=== PATIENT | female | born 1940 | race Caucasian/White ===

== ENCOUNTER → 2018-11-01 13:09 | Outpatient (POV) | payer MEDICARE, BC, SELFPAY | PROVIDERS: Visit Provider Dermatology | DX: Z00.00 Encounter for general adult medical examination without abnormal findings (principal) ==

== ENCOUNTER 2020-04-06 08:50 | Emergency (ER) | payer MEDICARE, BC, SELFPAY ==
[2020-04-06 08:51] VITALS: BP 188/96; PULSE 94; RESP 18; TEMP 36.5; O2SAT 97; BMI 23.5
--- NOTE | 2020-04-06 09:27 | PC.NURSE ---
Pt states she is unable to urinate at this time.
--- NOTE | 2020-04-06 09:28 | CT_ITS ---
PROCEDURE: CT HEAD/BRAIN WO CON CLINICAL INDICATION: hearing music and sounds x1 week, not sleeping COMPARISON: No exams were available for comparison TECHNIQUE: Axial images obtained. All CT scans at the facility use one or more dose reduction, viz: automated exposure control, ma/kV adjustment per patient size (including targeted exams where dose is matched to indication, i.e. head), or iterative reconstruction technique. FINDINGS: No midline shift, mass effect, intracranial hemorrhage, hydrocephalus, or extra-axial fluid collection is evident. The sylvian fissures and cortical sulci are prominent. There are moderate periventricular hypodensities consistent with chronic ischemic white matter changes. The calvarium has an unremarkable appearance. No mastoid effusion. No sinus air-fluid level. IMPRESSION: Findings of age-appropriate cortical atrophy and chronic ischemic white matter changes, no acute intracranial pathology noted Dictated by: Dr. Azam Verdugo MD 04/06/2020 09:[address] Azam Verdugo MD in [place] 04/06/2020 09:57
--- NOTE | 2020-04-06 09:36 | PC.NURSE ---
pt to radiology
--- NOTE | 2020-04-06 09:47 | PC.NURSE ---
pt return from CT
--- NOTE | 2020-04-06 10:24 | PC.NURSE ---
pt attempted to provide urine specimen again at this time, unsuccessful, giving pt water.
--- NOTE | 2020-04-06 10:25 | PC.NURSE ---
up to restroom again and is still unable to urinate.
[2020-04-06 11:26] VITALS: BP 163/84; PULSE 95; RESP 18; TEMP 37.4; O2SAT 93
--- NOTE | 2020-04-06 12:39 | HMH.EDGENADL ---
ED Disposition Clinical Impression: Auditory hallucinations Disposition: Home, Self-Care Condition on Discharge: Good Prescriptions: Quetiapine Fumarate [Seroquel 25mg tablet] 25 mg PO HS 30 Days #30 tab Transmission Status: Pending to [id number] Referrals: Dc Garcia MD [Primary Care Provider] - - Critical Care Critical Care Time: No Attestation: On 04/06/20, the high probability of a clinically significant, sudden or life threatening deterioration of the following system(s) required my full and direct attention, intervention and personal management. The time I documented below is in addition to time spent performing reported procedures but includes the following listed in this critical care notation. Medical Decision Making - Medical Records Medical records reviewed: Yes: I reviewed the patient's medical records. - Adam Inquiry Pt receiving controlled substance: No Vital Signs: 04/06/20 08:51 04/06/20 11:26 Temperature 97.7 F 99.3 F Temperature Source Oral Oral Pulse Rate [Right Radial] 94 H 95 H Respiratory Rate 18 18 Blood Pressure [Right Arm] 188/96 H 163/84 H Blood Pressure Mean [Right Arm] 126 110 Blood Pressure Source [Right Arm] Automatic Cuff Automatic Cuff Blood Pressure Position [Right Arm] Sitting Sitting 02 Sat by Pulse Oximetry 97 93 L Oxygen Delivery Method Room Air Room Air - Lab Data Lab results reviewed: Yes: I reviewed the patient's lab results. Orders (Tests/Meds): ED MEDICATIONS Discontinued Medications Generic Name Dose Route Start Last Admin Trade Name Freq PRN Reason Stop Dose Admin Tramadol HCl 50 mg 04/06/20 10:49 04/06/20 10:52 Ultram 50mg Tablet PO 04/06/20 10:50 50 mg ONCE ONE Administration ORDERS Category Date Time Status UA [Urinalysis and Microscopic] Stat Lab 04/06/20 09:28 Ordered - CT Data CT Scan: Head Time Received: 12:[address] Reviewed: Yes: I have viewed the radiologist's interpretation Preliminary Findings: Normal/NAD General Adult HPI - General Chief complaint: Weakness Stated complaint: hearing voices, not sleeping Time Seen by Provider: 04/06/20 12:00 Mode of Arrival: Wheelchair Source of Information: Patient Limitations: No Limitations Description of Symptoms (Recalled from ER Triage Doc. by RN): Pt reports difficulty sleeping for approx 1 week, states has also been hearing music and sounds that are not present. Pt son reports he had pt stop her tramadol 2 days ago because of the hearing sounds. Pt reports she did not sleep at all lastnight and has been shaking . Pt is alert, oriented x3. Reports has been on Tramadol for years for back pain. Denies urinary symptoms, denies pain. - History of Present Illness HPI narrative: 79-year-old female presents the ED with an acute onset of lightheadedness. Also of note she has been having some auditory hallucinations for the past 7 days. She did notice some of a couple months ago like music playing in the background music was playing and she said the been more pronounced lately. Patient also describes that she has had severe insomnia only sleeping a couple hours a night for the past 30 days. Patient did think it was her tramadol that was causing these issues so she did acutely stop it yesterday and has not had any in a day and a half. Otherwise patient denies any other symptoms. She denies any recent nausea vomiting diarrhea. She denies any dysuria she denies any arthralgias myalgias she denies any cough or shortness of breath. - Related Data Home Medications Medication Instructions Recorded Confirmed Aspirin [Aspirin 81mg chewable 81 mg PO DAILY 04/06/20 04/06/20 tab] Benazepril/Hydrochlorothiazide 1 each PO DAILY 04/06/20 04/06/20 [Benazepril-Hctz 20-25 mg Tab] Cetirizine HCl [Zyrtec] 10 mg PO DAILY 04/06/20 04/06/20 LORazepam [Ativan 1mg tablet] 1 mg PO BID 04/06/20 04/06/20 Levothyroxine Sodium 75 mcg PO DAILY 03/19
[2020-04-06 12:50] VITALS: BP 163/84; PULSE 95; RESP 18; TEMP 37.4; O2SAT 93
== END 2020-04-06 12:51 | disposition home or self-care (01) ==
PROVIDERS: Emergency Provider Family Medicine; PCP Family Medicine
DX: R44.0 Auditory hallucinations (principal); G47.00 Insomnia, unspecified; Z79.899 Other long term (current) drug therapy
CPT/HCPCS: 70450; 99282

== ENCOUNTER → 2020-04-07 13:38 | Outpatient (CLI) | payer MEDICARE, BC, SELFPAY ==
[2020-04-07 14:03] LABS: Microscopic, Urine URINE MICROSCOPIC (MICROSCOPIC)
[2020-04-07 14:06] LABS: Appearance,Urine CLEAR (Clear); Bilirubin,Urine Negative (Negative); Blood, Urine Negative (Negative); Color,Urine YELLOW (Yellow); Glucose,Urine (UA) Negative (Negative); Ketones,Urine Negative (Negative); Leukocyte Esterase,Urine TRACE (Negative); Nitrate,Urine POSITIVE (Negative); PH,Urine 6.5 (5.0-8.5); Protein,Urine Negative (Negative); Specific Gravity, Urine 1.015 (1.005-1.030); Urobilinogen,Urine 0.2 EU/dl (0.2)
[2020-04-07 14:17] LABS: Bacteria,Urine 2+ /lpf; WBC,Urine Occasional #/hpf (0-3)
== END ==
PROVIDERS: PCP Family Medicine; Visit Provider Family Medicine
DX: R44.0 Auditory hallucinations (principal); R82.90 Unspecified abnormal findings in urine
CPT/HCPCS: 81001; 87086

== ENCOUNTER → 2020-05-13 12:01 | Outpatient (CLI) | payer MEDICARE, BC, SELFPAY ==
[2020-05-13 12:52] LABS: Blood Urea Nitrogen 11 mg/dl (7-17); Estimated Glomerular Filt Rate 80 ml/min (>60); GFR (African American) 97 ML/MIN (>60)
--- NOTE | 2020-05-13 12:57 | MR_ITS ---
PROCEDURE: MR HEAD/BRAIN WO/W CON CLINICAL INDICATION: AUDITORY HALLUCINATIONS COMPARISON: CT HEAD/BRAIN WO CON from 04/06/2020 TECHNIQUE: Routine multiplanar multi echo sequences are performed without and with gadolinium enhancement. FINDINGS: Diffusion images show no evidence of acute infarction. The cerebellopontine angles, cerebellum, and brainstem have an unremarkable appearance. No midline shift or mass effect is evident. There are a few periventricular and subcortical T2 white matter hyperintensities which are nonspecific and may be related to ischemic gliotic changes from microvascular disease. No enhancing lesions are evident. No mastoid effusion or sinus air-fluid level. The pituitary, optic chiasm, corpus callosum, and craniocervical junction have an unremarkable appearance. IMPRESSION: 1. No acute intracranial findings. 2. Nonspecific periventricular and subcortical T2 white matter hyperintensity of which most common etiology would be ischemic gliotic change from microvascular disease. Dictated by: Carson Chowdhury MD 05/15/2020 08:26 Electronically signed by Carson Chowdhury MD in [place] 05/15/2020 08:26
== END ==
PROVIDERS: PCP Family Medicine; Visit Provider Family Medicine
DX: R44.0 Auditory hallucinations (principal)
CPT/HCPCS: 36415; 70553; 82565; 84520; A9576

== ENCOUNTER → 2020-06-25 10:54 | Outpatient (POV) | payer MEDICARE, BC, SELFPAY | PROVIDERS: Visit Provider Dermatology | DX: Z00.00 Encounter for general adult medical examination without abnormal findings (principal) ==

== ENCOUNTER → 2020-09-26 14:56 | Outpatient (CLI) | payer MEDICARE, BC, SELFPAY ==
--- NOTE | 2020-09-26 15:01 | XR_ITS ---
PROCEDURE: XR CERVICAL SPINE 5V CLINICAL INDICATION: CERVICAL SPINE PAIN, MUSCLE CRAMP COMPARISON: No exams were available for comparison FINDINGS: Views of the cervical spine including a swimmer's view show C1 through C7 to be intact. There is mild disc space narrowing at the C5-6 and C6-7 levels with minor anterior osteophytic spurring at both levels as well. There is mild neural foraminal narrowing on the right side at C5-6 and C6-7, left neural foramina appear grossly normal. There is moderately prominent arteriosclerotic calcification of carotid bulbs bilaterally. The prevertebral soft tissues are normal and the odontoid is normal. There is generalized osteopenia. There appear to be mild non recent compression fractures upper thoracic spine not completely visualized and adequately evaluated on these images. IMPRESSION: Mild degenerative disc disease C5-6 and C6-7 Dictated by: Dr. Azam Verdugo MD 09/26/2020 15:19 Dr. Azam Verdugo MD in [place] 09/26/2020 15:19
== END ==
PROVIDERS: PCP Nurse Practitioner; Visit Provider Nurse Practitioner
DX: M54.2 Cervicalgia (principal); R25.2 Cramp and spasm
CPT/HCPCS: 72050

== ENCOUNTER → 2021-04-15 14:39 | Outpatient (POV) | payer MEDICARE, BC, SELFPAY | PROVIDERS: Visit Provider Dermatology | DX: Z00.00 Encounter for general adult medical examination without abnormal findings (principal) ==

== ENCOUNTER → 2021-07-29 10:30 | Outpatient (CLI) | payer MEDICARE, BC, SELFPAY ==
--- NOTE | 2021-07-29 10:44 | XR_ITS ---
PROCEDURE: XR HIP RT 2-3V W/PELVIS CLINICAL INDICATION: LUMBAGO W/ SCIATICA, RT SIDE, RIGHT HIP PAIN COMPARISON: No exams were available for comparison FINDINGS: No acute fracture or dislocation. No lytic or blastic change. There is faint soft tissue calcification along the base of the greater trochanter laterally and could be related to old injury. Mild osteoarthritic changes of the hips. Degenerative changes noted in the lower lumbar spine. IMPRESSION: Mild osteoarthritis of the hips. Faint calcification along the inferior aspect of the greater trochanter on the right which could be related to old injury Dictated by: Carson Chowdhury MD 07/29/2021 16:28 Carson Chowdhury MD in [place] 07/29/2021 16:28
--- NOTE | 2021-07-29 10:44 | XR_ITS ---
PROCEDURE: XR LUMBAR SPINE MIN 4V CLINICAL INDICATION: LUMBAGO W/ SCIATICA RT SIDE, RT HIP PAIN COMPARISON: CR CXR CHEST(2 VIEWS-NOT PORTABLE) from 04/04/2016 FINDINGS: Mild lumbar scoliosis convex right. There is degenerative disc disease in the lower thoracic spine at T11-T12 and T12-L1. There is loss of height anteriorly of T12 of approximately 30 percent which appears old having a similar appearance on 04/04/2016. There is degenerative disc disease at L5-S1. There is diffuse vascular calcification. There is 8 mm anterolisthesis of L5 on S1. IMPRESSION: Degenerative changes, no acute finding Chronic wedge compression changes of T12 Dictated by: Carson Chowdhury MD 07/29/2021 16:41 Carson Chowdhury MD in [place] 07/29/2021 16:41
== END ==
PROVIDERS: PCP Family Medicine; Visit Provider Family Medicine
DX: M54.41 Lumbago with sciatica, right side (principal); M25.551 Pain in right hip
CPT/HCPCS: 72110; 73502

== ENCOUNTER 2021-08-25 18:26 | Inpatient (IN) | payer MEDICARE, BC, SELFPAY ==
[2021-08-25 18:26] VITALS: BP 143/76; PULSE 98; RESP 18; TEMP 36.6; O2SAT 98; BMI 25.4
--- NOTE | 2021-08-25 18:39 | XR_ITS ---
PROCEDURE INFORMATION: Exam: XR Chest Exam date and time: 08/25/2021 6:39 PM Age: 81 years old Clinical indication: Shortness of breath; Additional info: Weakness and SOB TECHNIQUE: Imaging protocol: XR of the chest. Views: 1 view. COMPARISON: CR CXR CHEST(2 VIEWS-NOT PORTABLE) 04/04/2016 11:35 AM FINDINGS: Lungs: Unremarkable. No consolidation. Pleural spaces: Unremarkable. No pleural effusion. No pneumothorax. Heart/Mediastinum: Unremarkable. No cardiomegaly. Bones/joints: Unremarkable. IMPRESSION: No acute findings.
--- NOTE | 2021-08-25 18:41 | HMH.EDGENADL ---
ED Disposition Clinical Impression: Hyponatremia Disposition: Admitted As Inpatient Condition on Discharge: Good Referrals: Dc Garcia MD [Primary Care Provider] - - Critical Care Critical Care Time: Yes Attestation: On 08/25/21, the high probability of a clinically significant, sudden or life threatening deterioration of the following system(s) required my full and direct attention, intervention and personal management. The time I documented below is in addition to time spent performing reported procedures but includes the following listed in this critical care notation. Vital system(s) involved:: Metabolic Failure My critical care processes included: Assessment & monitoring of V/S, Initial and Re-exams, Data Review/Interpretation Medical Decision Making - Medical Records Medical records reviewed: Yes: I reviewed the patient's medical records. - Adam Inquiry Pt receiving controlled substance: No Vital Signs: 08/25/21 18:26 Temperature 97.8 F Temperature Source Oral Pulse Rate [Left Radial] 98 H Respiratory Rate 18 Blood Pressure [Right Arm] 143/76 H Blood Pressure Mean [Right Arm] 98 Blood Pressure Source [Right Arm] Automatic Cuff Blood Pressure Position [Right Arm] Sitting 02 Sat by Pulse Oximetry 98 Oxygen Delivery Method Room Air - Lab Data Lab Results 08/25/21 19:34: WBC 19.8 H, RBC 4.40, Hgb 13.3, Hct 39.4, MCV 89.6, MCH 30.3, MCHC 33.8, RDW 12.5, Plt Count 453 H, MPV 7.7, Neut % (Auto) 91.8 H, Lymph % (Auto) 3.1 L, Titus % (Auto) 4.5, Eos % (Auto) 0.4, Baso % (Auto) 0.2, Neut # (Auto) 18.2 H, Lymph # (Auto) 0.6 L, Titus # (Auto) 0.9, Eos # (Auto) 0.1, Baso # (Auto) 0.1 08/25/21 19:34: Sodium 112 L*, Potassium 3.9, Chloride 77 L, Carbon Dioxide 27, Anion Gap 11.9, BUN 7, Creatinine 0.40 L, Estimated Creat Clear 48, Estimated GFR 152, Est GFR ( Amer) 184, Glucose 145 H, Calcium 8.7, Total Bilirubin 0.8, AST 29, ALT 15, Alkaline Phosphatase 86, Total Protein 6.6, Albumin 4.1, Globulin 2.5, Albumin/Globulin Ratio 1.6 Result diagrams: 08/25/21 19:34 08/25/21 19:34 Orders (Tests/Meds): ED MEDICATIONS Generic Name Dose Route Start Last Admin Trade Name Freq PRN Reason Stop Dose Admin Acetaminophen 650 mg 08/25/21 20:20 Acetaminophen 325mg Tab PO 09/24/21 20:19 Q4HP PRN Fever or Mild Pain Sodium Chloride 1,000 mls @ 100 mls/hr 08/25/21 20:30 Sod Chlor 0.9% 1000ml Bag IV 09/24/21 20:29 .Q10H MIKE Ondansetron HCl 4 mg 08/25/21 20:20 Ondansetron 4mg/2ml Vial IV 09/24/21 20:19 Q8HP PRN Nausea Discontinued Medications Generic Name Dose Route Start Last Admin Trade Name Freq PRN Reason Stop Dose Admin Sodium Chloride 100 mls @ 999 mls/hr 08/25/21 20:05 08/25/21 20:23 Sod Chloride 3% 500ml Bag (Hypertonic) IV 08/25/21 20:10 999 mls/hr .Q6M ONE Administration ORDERS Category Date Time Status Basic Metabolic Panel AMLAB Lab 08/26/21 06:00 Ordered Complete Blood Count Auto Diff AMLAB Lab 08/26/21 06:00 Ordered Complete Blood Count Auto Diff Stat Lab 08/25/21 19:34 Results Creatinine,Urine Random Stat Lab 08/25/21 20:04 Ordered Magnesium AMLAB Lab 08/26/21 06:00 Ordered Rapid PCR Covid and Flu A/B Stat Lab 08/25/21 19:56 Received Sodium Stat Lab 08/25/21 23:50 Ordered Urinalysis and Microscopic Stat Lab 08/25/21 18:38 Ordered Medical Decision Narrative: Patient is an 81-year-old female presenting to emergency department due to chief complaint of weakness. Differential diagnosis in this patient with electrolyte abnormality, dehydration, diarrheal illness, pneumonia, UTI, among others. Plan to order CBC, CMP, EKG, chest x-ray. CMP was concerning for severe hyponatremia with patient sodium being 112, corrected sodium was 113. She was given hypertonic boluses sodium 100ml, start her on 100 mL/h of normal saline with sodium check before midnight and BMP in the morning. Patient was discussed with Dr. Garcia who
--- NOTE | 2021-08-25 19:09 | PC.NURSE ---
LAbs coming to redraw blood
--- NOTE | 2021-08-25 19:18 | ECG_ITS ---
APPROVED REPORT Exam: Resting ECG HR:92 bpm ECG Measurements Heart Rate 92 AXES NH 152 P 69 QRSd 78 QRS -17 QT 368 T 58 QTc 455 Conclusion Sinus rhythm with occasional premature ventricular complexes Possible Left atrial enlargement Borderline ECG Electronically signed by : Dc Coffman MD 08/29/2021 13:57:02
[2021-08-25 19:45] LABS: Basophils # 0.1 K/mm3 (0-0.2); Basophils % 0.2 % (0.1-2.0); Eosinophils # 0.1 K/mm3 (0.0-0.4); Eosinophils % 0.4 % (0.1-12.0); Hematocrit 39.4 % (37.0-47.0); Hemoglobin 13.3 g/dL (12.2-16.2); Lymphocytes # 0.6 K/mm3 (0.7-4.5); Lymphocytes % 3.1 % (10-50); Mean Corpuscular HGB Conc 33.8 g/dL (31.8-35.4); Mean Corpuscular Hemoglobin 30.3 pg (27.0-31.2); Mean Corpuscular Volume 89.6 fl (81-99); Mean Platelet Volume 7.7 fl (7.4-10.4); Monocytes # 0.9 K/mm3 (0.1-1.0); Monocytes % 4.5 % (1.7-9.3); Neutrophils # 18.2 K/mm3 (1.8-7.8); Neutrophils % 91.8 % (37.0-80.0); Platelet Count 453 K/mm3 (142-424); Red Cell Distribution Width 12.5 % (11.5-17.5); White Blood Count 19.8 K/mm3 (4.8-10.8)
[2021-08-25 19:52] LABS: Alanine Aminotransferase 15 U/L (12-78); Albumin Level 4.1 g/dl (3.5-5.0); Albumin/Globulin Ratio 1.6 (1.1-1.8); Alkaline Phosphatase 86 U/L (38-126); Anion Gap 11.9 mEq/L (5-15); Aspartate Amino Transferase 29 U/L (14-36); Bilirubin,Total 0.8 mg/dl (0.2-1.3); Blood Urea Nitrogen 7 mg/dl (7-17); Calcium 8.7 mg/dl (8.4-10.2); Carbon Dioxide 27 mmol/L (22.0-30.0); Chloride 77 mmol/L (98-107); Creatinine Clearance Estimated 48 mL/min (50-200); Estimated Glomerular Filt Rate 152 ml/min (>60); GFR (African American) 184 ML/MIN (>60); Globulin 2.5 g/dL (1.3-3.2); Glucose 145 mg/dl (74-100); Potassium 3.9 mmoL/L (3.5-5.1); Total Protein,Serum 6.6 g/dl (6.3-8.2)
[2021-08-25 19:54] LABS: Sodium 112 mmol/L (136-145)
[2021-08-25 19:56] LABS: MANUAL DIFFERENTIAL MANUAL DIFFERENTIAL (MANUAL DIFF)
--- NOTE | 2021-08-25 20:04 | PC.NURSE ---
notified of critical sodium 112
[2021-08-25 20:09] LABS: Coronavirus 19, PCR Not Detected (NotDetected); Influenza A, PCR Not Detected (NotDetected); Influenza B, PCR Not Detected (NotDetected)
--- NOTE | 2021-08-25 20:12 | PC.NURSE ---
Dr. Ernst s/w Dr. Garcia
[2021-08-25 20:34] VITALS: BMI 25.4
[2021-08-25 21:17] LABS: Lymphocytes % 4 % (10-50); Monocytes % 1 % (2-9); Neutrophils % 95 % (42-76); Platelet Estimate Normal; RBC Morphology Normal; Total Cells Counted 100
[2021-08-25 21:48] VITALS: BP 154/75; PULSE 88; RESP 18; TEMP 36.6; O2SAT 94
--- NOTE | 2021-08-25 21:49 | PC.NURSE ---
patient up to floor via wheelchair @ this time
[2021-08-25 22:01] VITALS: BP 158/77; PULSE 94; RESP 20; TEMP 36.6; O2SAT 95
[2021-08-25 23:07] VITALS: O2SAT 95
[2021-08-26 04:00] VITALS: BP 125/66; PULSE 91; RESP 16; TEMP 36.6; O2SAT 90
--- NOTE | 2021-08-26 06:14 | PC.NURSE ---
Pt A+O x4. Pt c/o nausea when she arrived to floor. Zofran administered per MAR with favorable results. No other complaints voiced to staff. Able to ambulate to BR with 2x assist. Hat in place for urine specimen. Pt reports falling multiple times at home recently. Bed alarm in place for safety.
--- NOTE | 2021-08-26 07:17 | P.CONPHA_ITS ---
[facility] VTE Monitoring - Patient Demographics Admission date: 08/26/21 Report Date: 08/26/21 Time: 07:17 Allergies/Adverse Reactions: Patient Allergies No Known Allergies Allergy (Unverified 10/05/17 14:25) Height: 1.68 m Weight: 71.66 kg Patient Problems: Current Active Problems Hyponatremia (Acute) - VTE Risk Labs: VTE Related Lab Results Hgb 13.3 g/dL (12.2-16.2) 08/25/21 19:34 Hct 39.4 % (37.0-47.0) 08/25/21 19:34 Plt Count 453 K/mm3 (142-424) H 08/25/21 19:34 BUN 7 mg/dl (7-17) 08/25/21 19:34 Creatinine 0.40 mg/dl (0.52-1.04) L 08/25/21 19:34 Estimated Creat Clear 48 mL/min (50-200) 08/25/21 19:34 Was VTE Risk Assessment Performed: Yes VTE Score: 4 VTE Risk Level: Low Risk Clinical Trial Participant: No - Prophylaxis VTE Prophylaxis Ordered?: Yes Types of VTE Prophylaxis: TEDS Knee High
--- NOTE | 2021-08-26 07:19 | HMH.HP ---
*Admission Date: 08/26/21 *Chief complaint: Weakness *History of present illness: 81-year-old female presented to the emergency department with profound weakness that had been developing over the prior 3 to 4 days. Patient reports multiple falls at home. Yesterday her legs were so weak she could not get off of her toilet at home. Work-up in the emergency department revealed hyponatremia with sodium level of 112. Patient received a hypertonic saline bolus and was continued on normal saline overnight. Patient denies any confusion. She does have a history of auditory hallucinations but denies hallucinations recently. Patient had been started on fluoxetine in mid July for anxiety disorder. Sodium level performed in mid July was 132. This morning patient reports feeling a little better . [facility] History I have reviewed the patient's past medical history: Yes Medical History: Reports:: Hypertension Denies:: Diabetes Mellitus Type 1, Diabetes Mellitus Type 2 *Have you ever received a pneumonia vaccine?: Yes *Have you received a flu vaccine this season?: Yes Other Medical History: Reports: Hypothyroidism Laterality Cases: Bilateral: Tonsillectomy Other Surgeries: Yes: Hysterectomy-Total, Other (Tonsilectomy) Amputation: No Fractures: No - *Social History Last grade of school completed: GED Smoking Status: Former smoker Tobacco Type: cigarettes # Packs/Day (cigarettes): 1 Smoking End Date: 1992 Alcohol Intake: never *Occupational Status:: retired Housing: house Household Members: family, children *Travel in the last 8 weeks: None Family Hx:: Cancer Review of Systems - Constitutional Reports lack of energy - Eyes Denies blurry vision - ENT Reports abnormal hearing - *Cardiovascular Denies chest pain, Denies chest pain at rest, Denies chest pain with activity - *Respiratory Denies change in phlegm color, Denies chest congestion, Denies cough - *Gastrointestinal Denies belching, Denies bloating - *Genitourinary Denies painful urination - *Musculoskeletal Reports abnormal walking, Reports joint pain, Reports back pain - Integumentary/Breasts Denies hair loss - *Neurologic Reports weakness - Psychiatric Reports anxiety, Denies lack of enjoyment Meds Home Medications Medication Instructions Recorded Confirmed Type Aspirin [Aspirin 81mg chewable 81 mg PO DAILY 04/06/20 08/25/21 History tab] Benazepril/Hydrochlorothiazide 1 each PO DAILY 04/06/20 08/25/21 History [Benazepril-Hctz 20-25 mg Tab] Cetirizine HCl [Zyrtec] 10 mg PO DAILY 04/06/20 08/25/21 History LORazepam [Ativan 1mg tablet] 1 mg PO BID 04/06/20 08/25/21 History Levothyroxine Sodium 75 mcg PO DAILY 04/06/20 08/25/21 History [Levothyroxine 75mcg (0.075mg) Tab] Omeprazole [Omeprazole 40mg 40 mg PO DAILY 04/06/20 08/25/21 History Capsule] Pravastatin Sodium [Pravachol 40mg 40 mg PO HS 04/06/20 08/25/21 History Tablet] Tramadol HCl [Tramadol 50mg 50 mg PO Q6H PRN 04/06/20 08/25/21 History Tab] allopurinoL [Allopurinol 100mg 100 mg PO DAILY 04/06/20 08/25/21 History tablet] Quetiapine Fumarate [Seroquel 25mg 25 mg PO HS 08/25/21 08/25/21 History tablet] Allergies Allergy/AdvReac Type Severity Reaction Status Date / Time No Known Allergies Allergy Unverified 10/05/17 14:25 Exam Vital signs and Labs for Last 24 Hours: Temp Pulse Resp BP Pulse Ox 97.8 F 91 H 16 125/66 90 L 08/26/21 04:00 08/26/21 04:00 08/26/21 04:00 08/26/21 04:00 08/26/21 04:00 Laboratory Results - last 24 hr 08/25/21 19:34: WBC 19.8 H, RBC 4.40, Hgb 13.3, Hct 39.4, MCV 89.6, MCH 30.3, MCHC 33.8, RDW 12.5, Plt Count 453 H, MPV 7.7, Neut % (Auto) 91.8 H, Lymph % (Auto) 3.1 L, Garvin % (Auto) 4.5, Eos % (Auto) 0.4, Baso % (Auto) 0.2, Neut # (Auto) 18.2 H, Lymph # (Auto) 0.6 L, Garvin # (Auto) 0.9, Eos # (Auto) 0.1, Baso # (Auto) 0.1, Total Counted 100, Neutrophils % (Manual) 95 H, Lymphocytes
--- NOTE | 2021-08-26 07:32 | HMH.PHAINT ---
VERIFIED HOME MEDICATION LIST USING LIST FROM [facility] AND PHYSICIAN DISCUSSION
[2021-08-26 07:37] LABS: Blood Urea Nitrogen 8 mg/dl (7-17); Calcium 8.2 mg/dl (8.4-10.2); Carbon Dioxide 26 mmol/L (22.0-30.0); Chloride 81 mmol/L (98-107); Creatinine Clearance Estimated 48 mL/min (50-200); Estimated Glomerular Filt Rate 118 ml/min (>60); GFR (African American) 143 ML/MIN (>60); Glucose 122 mg/dl (74-100); Potassium 3.8 mmoL/L (3.5-5.1)
[2021-08-26 07:48] LABS: Anion Gap 10.8 mEq/L (5-15)
[2021-08-26 08:00] VITALS: BP 138/76; PULSE 98; RESP 18; TEMP 36.7; O2SAT 90
[2021-08-26 08:14] LABS: Sodium 114 mmol/L (136-145)
[2021-08-26 08:42] VITALS: RESP 18
--- NOTE | 2021-08-26 08:59 | PC.NURSE ---
Addendum entered by Betty Torres RN 08/26/21 09:07: NEW ORDER- d/c NS Original Note: 0813- spoke to kuldip in the lab regarding critical sodium of 114. verified name, and room number 0820- notified MD Garcia, NNO @ this time
--- NOTE | 2021-08-26 11:45 | HMH.PTEV ---
Physical Therapy Evaluation Rehab PT IP Evaluation Start: 08/26/21 07:00 Freq: ONCE Status: Active Protocol: Document 08/26/21 11:22 ADEOLA (Rec: 08/26/21 11:45 ADEOLA [id number]) Subjective/History History History This is the initial evaluation for Lis Castillo. Pt is an 81 y/o female admitted to [facility] for excessive weakness that has been developing over the past 4 days. Pt's labs showed hyponatremia. Pt is extremly hard of hearing. Pt was sitting in chair upon arrival. - note done by Kenya Mueller, SPT Subjective Subjective Pt stated she lived at home with son prior to current medical episode. Pt reports her son works most days so she is mostly home alone. Pt reports she uses a 4-point cane to get around but she still experiences falls. Pt reports feeling very weak in her legs and that she is afraid to stand. Rehab PT IP Eval Objective Appearance Patient Behavior Appropriate,Cooperative Patient Orientation Place,Name,Birthday,Year Difficulty following instructions mild Speech Pattern Clear,Appropriate,Coherent Ambulation Patient Able to Ambulate Yes Ambulation Observation IP General Gait Pattern Observation Narrow Based Gait Ambulation Distance (feet) 5 Ambulation Ability Minimal x 2 (25% assist) Balance Ability to Arise Able, uses arms to help Sitting Balance Leans or slides in chair Standing Balance Unsteady Dynamic Sitting Balance Ability Poor Dynamic Standing Balance Ability Poor Transfers Bed Transfer Ability Minimal x 2 (25% assist) Chair Transfer Ability Maximum x 2 (75% assist) Sit to Stand Chair Transfer Ability Maximum x 2 (75% assist) Rehab PT IP prob,goals,plan Problems Date of Evaluation: 08/26/21 PT IP Problems Bed Mobility,Transfers,Gait, Balance,Self care,Safety Rehab Potential Rehab Potential Fair Equipment Needs Assistive Devices Rolling / Wheeled Walker Plan PT Intervention Plan Bed Mobility,Transfers,Gait, Balance,Self care,Safety, Therapeutic Exercise PT Plan Frequency
--- NOTE | 2021-08-26 13:12 | SW/DCPLANNER ---
Addendum entered by [facility] 08/28/21 10:12: COVID swab will be collected/resulted prior to discharge. Addendum entered by [facility] 08/27/21 15:05: Laurel with [facility] has stated that she can accept this patient at time of discharge. Addendum entered by [facility] 08/27/21 11:49: Laurel with [facility] will do an onsite visit with this patient this afternoon. Laurel spoke with patients son to make him aware. Addendum entered by [facility] 08/27/21 09:24: I spoke with patients son (Ricardo) has stated that he is agreeable to placement for this patient. Ricardo has requested that patient information be faxed to [facility]. I will follow up with Laurel from [facility] this AM regarding referral. Addendum entered by [facility] 08/27/21 08:08: This patient is now agreeable to placement. I will call and speak with patients family this AM then fax patient information to preferred facilities. Dr Garcia has stated that patient could be ready for discharge tomorrow pending no setbacks. Original Note: I spoke with this patient regarding discharge plans. I explained to patient that PT has recommended placement at time of discharge. Patient has refused placement at this time stating that she has family to help her at home. Patient prefers to discharge home with home health services. I will continue to follow up with this patient until patient is medically stable for discharge.
[2021-08-26 16:00] VITALS: BP 136/76; PULSE 92; RESP 16; TEMP 36.5; O2SAT 89
[2021-08-26 20:00] VITALS: O2SAT 90
[2021-08-26 20:12] VITALS: BP 137/76; PULSE 89; RESP 17; TEMP 36.5; O2SAT 90
[2021-08-27] VITALS: BP 128/72; PULSE 88; RESP 16; TEMP 36.6; O2SAT 90
[2021-08-27 04:00] VITALS: BP 141/76; PULSE 89; RESP 17; TEMP 36.6; O2SAT 95
[2021-08-27 04:36] VITALS: BMI 26.3
--- NOTE | 2021-08-27 05:51 | PC.NURSE ---
No acute changes at this time. Pt slept well t/o night. Bed alarm in place for safety.
[2021-08-27 07:23] LABS: Anion Gap 9.7 mEq/L (5-15); Blood Urea Nitrogen 12 mg/dl (7-17); Carbon Dioxide 28 mmol/L (22.0-30.0); Chloride 79 mmol/L (98-107); Creatinine Clearance Estimated 50 mL/min (50-200); Estimated Glomerular Filt Rate 118 ml/min (>60); GFR (African American) 143 ML/MIN (>60); Glucose 116 mg/dl (74-100); Potassium 3.7 mmoL/L (3.5-5.1)
[2021-08-27 07:36] LABS: Sodium 113 mmol/L (136-145)
--- NOTE | 2021-08-27 07:36 | PC.NURSE ---
Notified provider MD Jose of serum sodium level of 113-- critical
[2021-08-27 08:00] VITALS: BP 156/81; PULSE 96; RESP 20; TEMP 36.9; O2SAT 92
--- NOTE | 2021-08-27 08:02 | PC.NURSE ---
Provider ordered 100mL bolus of 3% saline to run at 500ml/hr. Bolus initiated. Repeat sodium to be drawn at NOON as per provider order
[2021-08-27 08:41] LABS: Microscopic, Urine URINE MICROSCOPIC (MICROSCOPIC)
[2021-08-27 08:44] LABS: Appearance,Urine CLEAR (Clear); Bilirubin,Urine Negative (Negative); Blood, Urine TRACE-I (Negative); Color,Urine YELLOW (Yellow); Glucose,Urine (UA) Negative (Negative); Ketones,Urine 1+ (Negative); Leukocyte Esterase,Urine TRACE (Negative); Nitrate,Urine POSITIVE (Negative); PH,Urine 5.5 (5.0-8.5); Protein,Urine TRACE (Negative); Specific Gravity, Urine >= 1.030 (1.005-1.030); Urobilinogen,Urine 0.2 EU/dl (0.2)
[2021-08-27 09:04] LABS: Creatinine,Urine Random 125 mg/dL (Not Estab.)
--- NOTE | 2021-08-27 09:55 | P.PN_ITS ---
Internal Medicine - PN: Subj *Date: 08/27/21 *Time: 09:55 Interval history: Patient w/o complaints. Remains weak. PT recommends sNF. Patient is agreeable at the moment. Requiring at least 1 person and sometimes to person assist with ambulation Exam Vital signs and Labs for Last 24 Hours: Temp Pulse Resp BP Pulse Ox 98.4 F 96 H 20 156/81 H 92 L 08/27/21 08:00 08/27/21 08:00 08/27/21 08:00 08/27/21 08:00 08/27/21 08:00 Laboratory Results - last 24 hr 08/25/21 08:30: Urine Color Yellow, Urine Appearance Clear, Urine pH 5.5, Ur Specific [place] >= 1.030, Urine Protein Trace, Urine Glucose (UA) Negative, Urine Ketones 1+, Urine Blood Trace-i, Urine Nitrate Positive, Urine Bilirubin Negative, Urine Urobilinogen 0.2, Ur Leukocyte Esterase Trace, Urine RBC 3-5, Urine WBC 3-5, Ur Squamous Epith Cells 3-5, Urine Bacteria None 08/25/21 08:30: Urine Creatinine 125 08/27/21 06:48: Sodium 113 L*, Potassium 3.7, Chloride 79 L, Carbon Dioxide 28, Anion Gap 9.7, BUN 12 D, Creatinine 0.50 L, Estimated Creat Clear 50, Estimated GFR 118, Est GFR ( Amer) 143, Glucose 116 H, Calcium 8.0 L I & O for Last 24 hours: Intake & Output 08/24/21 08/25/21 08/26/21 08/27/21 11:59 11:59 11:59 11:59 Intake Total 0 / 0 720 / 720 Output Total 0 / 0 0 / 0 Balance 0 / 0 720 / 720 Weight 157 lb 15.732 oz 164 lb - Constitutional no acute distress - *Routine Respiratory Exam Present: CTA bilaterally - *Routine Cardiovascular Exam Present: RRR - *Routine Abdominal Exam Present: soft, normoactive bowel sounds. Absent: tenderness - *Routine Extremities Exam Absent: cyanosis, clubbing, edema Assessment and Plan (1) Hyponatremia Status: Acute Category: Medical Code(s): E87.1 - Hypo-osmolality and hyponatremia (2) SIADH (syndrome of inappropriate ADH production) Status: Acute Category: Medical Code(s): E22.2 - Syndrome of inappropriate secretion of antidiuretic hormone (3) Essential hypertension Status: Acute Category: Medical Code(s): I10 - Essential (primary) hypertension (4) Anxiety disorder Status: Acute Category: Medical Code(s): F41.9 - Anxiety disorder, unspecified (5) Degenerative arthritis of lumbar spine Status: Acute Category: Medical Code(s): M47.816 - Spondylosis without myelopathy or radiculopathy, lumbar region - Assessment and plan all Dx Assessment and Plan for all problems:: 1. Hypertonic saline bolus of 100ml, repeat bmp. If no improvment will given another bolus 2. CM consult for SNF
[2021-08-27 15:49] LABS: Chloride 80 mmol/L (98-107); Potassium 3.9 mmoL/L (3.5-5.1)
[2021-08-27 15:52] LABS: Anion Gap 10.9 mEq/L (5-15); Blood Urea Nitrogen 12 mg/dl (7-17); Calcium 8.1 mg/dl (8.4-10.2); Carbon Dioxide 28 mmol/L (22.0-30.0); Creatinine Clearance Estimated 50 mL/min (50-200); Estimated Glomerular Filt Rate 118 ml/min (>60); GFR (African American) 143 ML/MIN (>60); Glucose 119 mg/dl (74-100)
[2021-08-27 16:00] VITALS: BP 149/74; PULSE 92; RESP 24; TEMP 36.8; O2SAT 93
[2021-08-27 16:16] LABS: Sodium 115 mmol/L (136-145)
[2021-08-27 19:51] VITALS: BP 144/65; PULSE 90; RESP 20; TEMP 36.3; O2SAT 93
[2021-08-27 20:16] LABS: Anion Gap 9.7 mEq/L (5-15); Blood Urea Nitrogen 13 mg/dl (7-17); Calcium 7.9 mg/dl (8.4-10.2); Carbon Dioxide 27 mmol/L (22.0-30.0); Chloride 83 mmol/L (98-107); Creatinine Clearance Estimated 50 mL/min (50-200); Estimated Glomerular Filt Rate 152 ml/min (>60); GFR (African American) 184 ML/MIN (>60); Glucose 132 mg/dl (74-100); Potassium 3.7 mmoL/L (3.5-5.1); Sodium 116 mmol/L (136-145)
[2021-08-28 04:00] VITALS: BP 150/68; PULSE 91; RESP 20; TEMP 36.7; O2SAT 93
[2021-08-28 04:58] VITALS: BMI 27.1
--- NOTE | 2021-08-28 05:02 | PC.NURSE ---
NO ACUTE CHANGES. PT HAS C/O DISCOMFORT TO BACK AND ABDOMEN THIS SHIFT. HAS ALSO C/O NAUSEA. NO EMESIS NOTED. MEDICATED PER DEC. PT HAD A SHOWER THIS SHIFT. SHE STATES THAT SHE HAS HAD 2 LOOSE STOOLS. NOT OBSERVED BY STAFF. VSS. BP HAS IMPROVED. nO OTHER CONCERNS. WILL CONTINUE TO MONITOR.
--- NOTE | 2021-08-28 05:12 | PC.NURSE ---
NO ACUTE CHANGES. PT HAS RESTED WELL THIS SHIFT. HAS DENIED ANY PAIN. SHE WOKE UP THIS AM ASKING WHERE HER DOG WAS. PT WAS REDIRECTED. NO ADDITIONAL CONCERNS. SHE HAS BEEN INCONTINENT OF URINE X2 THIS SHIFT. VSS. MEDICATION ADMINISTERED PER MAR. WILL CONTINUE TO MONITOR.
[2021-08-28 07:10] LABS: Blood Urea Nitrogen 17 mg/dl (7-17); Calcium 7.9 mg/dl (8.4-10.2); Carbon Dioxide 28 mmol/L (22.0-30.0); Chloride 88 mmol/L (98-107); Creatinine Clearance Estimated 52 mL/min (50-200); Estimated Glomerular Filt Rate 69 ml/min (>60); GFR (African American) 83 ML/MIN (>60); Glucose 106 mg/dl (74-100); Sodium 122 mmol/L (136-145)
--- NOTE | 2021-08-28 07:27 | HMH.DCSUM ---
General - General Admission date:: 08/25/21 Discharge date: 08/28/21 HPI HPI: 81-year-old female presented to the emergency department with profound weakness that had been developing over the prior 3 to 4 days. Patient reports multiple falls at home. Yesterday her legs were so weak she could not get off of her toilet at home. Work-up in the emergency department revealed hyponatremia with sodium level of 112. Patient received a hypertonic saline bolus and was continued on normal saline overnight. Patient denies any confusion. She does have a history of auditory hallucinations but denies hallucinations recently. Patient had been started on fluoxetine in mid July for anxiety disorder. Sodium level performed in mid July was 132. This morning patient reports feeling a little better . Hospital Course Hospital Course: Patient was admitted for severe hyponatremia with associated mental status changes and falls. Mental status is somewhat difficult to assess the time due to the patient's severe hearing loss. Patient was admitted with a sodium level of 112 and after being given small fluid boluses of hypertonic saline sodium arnie as high as 116. Patient was then given hypertonic saline continuous infusion at 35 mL's per hour. Sodium arnie to 122. The cause of patient's hyponatremia is syndrome of inappropriate ADH secretion caused by fluoxetine the patient had been started on 1 month prior for anxiety. On August 28 patient's sodium had risen. She still remained weak and PT had evaluated the patient during hospitalization and recommended half-way facility for rehabilitation due to patient's falls at home. Patient was accepted by [facility] on August 28 with the discharge to that facility. Patient will need BMP each Wednesday she is at the facility Objective Vital signs: Temp Pulse Resp BP Pulse Ox 98.1 F 91 H 20 150/68 H 93 L 08/28/21 04:00 08/28/21 04:00 08/28/21 04:00 08/28/21 04:00 08/28/21 04:00 no acute distress - *Routine Respiratory Exam Present: CTA bilaterally - *Routine Cardiovascular Exam Present: RRR - *Routine Abdominal Exam Present: soft, normoactive bowel sounds. Absent: tenderness - *Routine Extremities Exam Absent: cyanosis, clubbing, edema Results Labs on day of discharge: Labs from last 24 hours 08/28/21 08/27/21 08/27/21 06:25 19:27 15:10 Sodium 122 L 116 L 115 L Potassium 4.0 3.7 3.9 Chloride 88 L 83 L 80 L Carbon Dioxide 28 27 28 Anion Gap 10.0 9.7 10.9 BUN 17 D 13 12 Creatinine 0.80 D 0.40 L 0.50 L Estimated Creat Clear 52 50 50 Estimated GFR 69 152 118 Est GFR ( Amer) 83 D 184 D 143 Glucose 106 H 132 H 119 H Calcium 7.9 L 7.9 L 8.1 L Urine Color Urine Appearance Urine pH Ur Specific [place] Urine Protein Urine Glucose (UA) Urine Ketones Urine Blood Urine Nitrate Urine Bilirubin Urine Urobilinogen Ur Leukocyte Esterase Urine RBC Urine WBC Ur Squamous Epith Cells Urine Bacteria Urine Creatinine 08/27/21 08/25/21 08/25/21 06:48 08:30 08:30 Sodium 113 L* Potassium 3.7 Chloride 79 L Carbon Dioxide 28 Anion Gap 9.7 BUN 12 D Creatinine 0.50 L Estimated Creat Clear 50 Estimated GFR 118 Est GFR ( Amer) 143 Glucose 116 H Calcium 8.0 L Urine Color Yellow Urine Appearance Clear Urine pH 5.5 Ur Specific [place] >= 1.030 Urine Protein Trace Urine Glucose (UA) Negative Urine Ketones 1+ Urine Blood Trace-i Urine Nitrate Positive Urine Bilirubin Negative Urine Urobilinogen 0.2 Ur Leukocyte Esterase Trace Urine RBC 3-5 Urine WBC 3-5 Ur Squamous Epith Cells 3-5 Urine Bacteria None Urine Creatinine 125 DS: Diagnosis - Discharge Diagnosis (1) Hyponatremia Status: Acute (2) SIADH (syndrome of inappropriate ADH production) Sta
[2021-08-28 08:00] VITALS: BP 146/73; PULSE 95; RESP 18; TEMP 36.5; O2SAT 90
--- NOTE | 2021-08-28 09:31 | PC.NURSE ---
pt home medication ativan was counted and verified with Yaa Ervin RN prior to pt d/c from unit.
[2021-08-28 11:12] LABS: Sodium, Urine 80 mmol/L (Not Estab.)
[2021-08-28 11:28] LABS: Coronavirus 19, PCR Not Detected (NotDetected); Influenza A, PCR Not Detected (NotDetected); Influenza B, PCR Not Detected (NotDetected)
[2021-08-29 08:21] LABS: Osmolality, Urine 623 mOsmol/kg (.)
== END 2021-08-28 09:50 | disposition home or self-care (01) | DRG 645 ==
LOC: ER 20:31 → 2ND 20:36
PROVIDERS: Admitting Provider Family Medicine; Emergency Provider Emergency Medicine; PCP Family Medicine; Visit Provider Family Medicine
DX: E22.2 Syndrome of inappropriate secretion of antidiuretic hormone (principal); I10 Essential (primary) hypertension; E03.9 Hypothyroidism, unspecified; Z87.891 Personal history of nicotine dependence; F41.9 Anxiety disorder, unspecified
CPT/HCPCS: 36415; 71045; 80048; 80053; 81001; 82570; 83935; 84300; 85007; 85025; 93005; 96365; 96366; 96375; 97110; 97162; 97530; 99284; C9803; J2405; U0003; U0005

== ENCOUNTER 2021-09-28 20:51 | Observation (INO) | payer MEDICARE, BC, SELFPAY ==
[2021-09-28 20:59] VITALS: BP 162/84; PULSE 122; RESP 32; TEMP 39.6; O2SAT 92; BMI 26.4
[2021-09-28 21:28] VITALS: BMI 26.6
[2021-09-28 21:31] VITALS: BP 119/58; PULSE 125; RESP 32; O2SAT 90
--- NOTE | 2021-09-28 21:31 | CT_ITS ---
PROCEDURE INFORMATION: Exam: CT Abdomen And Pelvis With Contrast Exam date and time: 09/28/2021 9:31 PM Age: 81 years old Clinical indication: Injury or trauma; Fall; Blunt; Generalized; Injury date: 09/28/2021; Additional info: Fall, low abd pain TECHNIQUE: Imaging protocol: Computed tomography of the abdomen and pelvis with contrast. Radiation optimization: All CT scans at this facility use at least one of these dose optimization techniques: automated exposure control; mA and/or kV adjustment per patient size (includes targeted exams where dose is matched to clinical indication); or iterative reconstruction. Contrast material: ISOVUE; Contrast volume: 70 ml; Contrast route: IV; COMPARISON: CR XR HIP BI W PEL1V 09/28/2021 9:56 PM FINDINGS: Liver: Normal. No mass. Gallbladder and bile ducts: Normal. No calcified stones. No ductal dilation. Pancreas: Normal. No ductal dilation. Spleen: Normal. No splenomegaly. Adrenal glands: Normal. No mass. Kidneys and ureters: There is stranding around the left kidney but no hydronephrosis. These findings are concerning for pyelonephritis. These findings could also reflect recent passage of a stone. Stomach and bowel: Diverticulosis in the sigmoid without diverticulitis. Constipation. No colitis. No small bowel obstruction. Appendix: Normal appendix Intraperitoneal space: Unremarkable. No free air. No significant fluid collection. Vasculature: Arthrosclerotic changes in the aorta. Lymph nodes: Unremarkable. No enlarged lymph nodes. Urinary bladder: Colunga catheter in the urinary bladder. Reproductive: Unremarkable as visualized. Bones/joints: Unremarkable. No acute fracture. Soft tissues: Unremarkable. IMPRESSION: Stranding around the left kidney could reflect pyelonephritis or inflammation from possible contusion although there is no hematoma or contrast extravasation . No additional acute intra-abdominal or intrapelvic process.
--- NOTE | 2021-09-28 21:31 | ECG_ITS ---
APPROVED REPORT Exam: Resting ECG HR:126 bpm ECG Measurements Heart Rate 126 AXES DC 126 P 68 QRSd 72 QRS -28 QT 354 T 61 QTc 512 Conclusion Sinus tachycardia with premature ventricular complexes or fusion complexes Possible Left atrial enlargement Borderline ECG Electronically signed by : Dc Coffman MD 09/29/2021 20:17:58
--- NOTE | 2021-09-28 21:31 | XR_ITS ---
PROCEDURE INFORMATION: Exam: XR Bilateral Hips Exam date and time: 09/28/2021 9:31 PM Age: 81 years old Clinical indication: Injury or trauma; Fall; Blunt trauma (contusions or hematomas); Bilateral; Pelvic region; Injury date: 09/28/2021; Patient HX: PT fell having low abdomen pain and pelvis pain; Additional info: Fall, bilat hip pain TECHNIQUE: Imaging protocol: XR bilateral hips. Views: 2 views of hips with pelvis when performed. COMPARISON: CR XR HIP RT 2-3V W/PELVIS 07/29/2021 10:59 AM FINDINGS: Bones/joints: Degenerative changes of the lumbosacral spine. No acute fracture. Soft tissues: [place] catheter is present. IMPRESSION: No acute findings.
--- NOTE | 2021-09-28 21:31 | XR_ITS ---
PROCEDURE INFORMATION: Exam: XR Chest Exam date and time: 09/28/2021 9:31 PM Age: 81 years old Clinical indication: Injury or trauma; Fall; Blunt trauma (contusions or hematomas); Injury date: 09/28/2021; Injury details: Fell; Patient HX: Trauma protocols TECHNIQUE: Imaging protocol: XR of the chest. Views: 4 or more views. COMPARISON: CR XR CHEST PORTABLE 08/25/2021 6:47 PM FINDINGS: Lungs: Unremarkable. No consolidation. Pleural spaces: Unremarkable. No pleural effusion. No pneumothorax. Heart/Mediastinum: Unremarkable. No cardiomegaly. Bones/joints: Mild scoliosis. IMPRESSION: No acute findings.
[2021-09-28 21:46] LABS: Microscopic, Urine URINE MICROSCOPIC (MICROSCOPIC)
[2021-09-28 21:49] LABS: Basophils # 0.1 K/mm3 (0-0.2); Basophils % 0.5 % (0.1-2.0); Eosinophils % 0.1 % (0.1-12.0); Hematocrit 39.1 % (37.0-47.0); Hemoglobin 12.6 g/dL (12.2-16.2); Lymphocytes # 0.9 K/mm3 (0.7-4.5); Lymphocytes % 9.4 % (10-50); Mean Corpuscular HGB Conc 32.3 g/dL (31.8-35.4); Mean Corpuscular Hemoglobin 29.1 pg (27.0-31.2); Mean Platelet Volume 8.6 fl (7.4-10.4); Monocytes # 0.7 K/mm3 (0.1-1.0); Monocytes % 7.1 % (1.7-9.3); Platelet Count 335 K/mm3 (142-424); Red Blood Count 4.34 M/mm3 (4.20-5.40); Red Cell Distribution Width 12.5 % (11.5-17.5); White Blood Count 9.6 K/mm3 (4.8-10.8)
--- NOTE | 2021-09-28 21:52 | HMH.EDFALL ---
ED Disposition Clinical Impression: SIRS (systemic inflammatory response syndrome) UTI (urinary tract infection) Qualifiers: Urinary tract infection type: site unspecified Hematuria presence: without hematuria Qualified Code(s): N39.0 - Urinary tract infection, site not specified Dyspnea Qualifiers: Dyspnea type: unspecified Qualified Code(s): R06.00 - Dyspnea, unspecified Disposition: Admitted As Inpatient Condition on Discharge: Fair Referrals: Dc Garcia MD [Primary Care Provider] - - Critical Care Critical Care Time: No Attestation: On 09/28/21, the high probability of a clinically significant, sudden or life threatening deterioration of the following system(s) required my full and direct attention, intervention and personal management. The time I documented below is in addition to time spent performing reported procedures but includes the following listed in this critical care notation. Medical Decision Making - Medical Records Medical records reviewed: Yes: I reviewed the patient's medical records. - Adam Inquiry Pt receiving controlled substance: No Vital Signs: 09/28/21 20:59 09/28/21 21:31 09/28/21 22:22 Temperature 103.2 F H Temperature Source Rectal Pulse Rate 125 H 117 H Pulse Rate [Right] 122 H Respiratory Rate 32 H 32 H 33 H Blood Pressure 119/58 L 149/65 H Blood Pressure [Right Arm] 162/84 H Blood Pressure Mean 85 93 Blood Pressure Mean [Right Arm] 110 02 Sat by Pulse Oximetry 92 L 90 L 92 L Oxygen Delivery Method Room Air Room Air Room Air 09/28/21 22:31 Temperature Temperature Source Pulse Rate 108 H Pulse Rate [Right] Respiratory Rate Blood Pressure 138/69 Blood Pressure [Right Arm] Blood Pressure Mean 92 Blood Pressure Mean [Right Arm] 02 Sat by Pulse Oximetry 87 L Oxygen Delivery Method Room Air - Lab Data Lab results reviewed: Yes: I reviewed the patient's lab results. Lab Results 09/28/21 21:18: WBC 9.6, RBC 4.34, Hgb 12.6, Hct 39.1, MCV 90.0, MCH 29.1, MCHC 32.3, RDW 12.5, Plt Count 335, MPV 8.6, Neut % (Auto) 83.0 H, Lymph % (Auto) 9.4 L, [place] % (Auto) 7.1, Eos % (Auto) 0.1, Baso % (Auto) 0.5, Neut # (Auto) 8.0 H, Lymph # (Auto) 0.9, [place] # (Auto) 0.7, Eos # (Auto) 0.0, Baso # (Auto) 0.1, ESR 36 H 09/28/21 21:18: Sodium 130 L, Potassium 3.5, Chloride 93 L, Carbon Dioxide 32 H, Anion Gap 8.5, BUN 32 H, Creatinine 0.90, Estimated Creat Clear 47, Estimated GFR 60, Est GFR ( Amer) 72, Glucose 156 H, Calcium 8.2 L, Magnesium 1.1 L, Total Bilirubin 0.4, AST 34, ALT 17, Alkaline Phosphatase 78, Troponin I 0.02, C-Reactive Protein 121.9 H, Total Protein 6.4, Albumin 3.6, Globulin 2.8, Albumin/Globulin Ratio 1.3, Procalcitonin 0.671, TSH 0.91, Thyroxine (T4) 7.9 09/28/21 21:18: Lactate 0.7 09/28/21 21:18: NT-Pro-B Natriuret Pep 1160 H 09/28/21 21:36: Urine Color Yellow, Urine Appearance Sl cloudy, Urine pH 5.5, Ur Specific [place] 1.025, Urine Protein 1+, Urine Glucose (UA) Negative, Urine Ketones Negative, Urine Blood Trace-i, Urine Nitrate Negative, Urine Bilirubin Negative, Urine Urobilinogen 0.2, Ur Leukocyte Esterase 1+ A, Urine RBC 3-5, Urine WBC 20-50 09/28/21 22:10: SARS-CoV-2 (PCR) Not detected, Influenza A Untype (PCR) Not detected, Influenza Type B (PCR) Not detected Result diagrams: 09/28/21 21:18 09/28/21 21:18 Orders (Tests/Meds): ED MEDICATIONS Generic Name Dose Route Start Last Admin Trade Name Freq PRN Reason Stop Dose Admin Sodium Chloride 1,000 mls @ 999 mls/hr 09/28/21 21:45 09/28/21 22:24 Sod Chlor 0.9% 1000ml Bag IV 09/28/21 22:45 999 mls/hr .Q1H1M MIKE Administration Ceftriaxone Sodium 1 gm/ 50 mls @ 100 mls/hr 09/28/21 23:00 09/28/21 23:38 Sodium Chloride IV 10/12/21 22:59 100 mls/hr Q24H MIKE Administration Discontinued Medications Generic Name Dose Route Start Last Admin Trade Name Freq PRN Reason Stop Dose Admin Acetaminophen 1,000 mg 09/28/21 21:31 09/28/21 22:24 Acetaminophe
[2021-09-28 21:54] LABS: Appearance,Urine SL CLOUDY (Clear); Bilirubin,Urine Negative (Negative); Blood, Urine TRACE-I (Negative); Color,Urine YELLOW (Yellow); Glucose,Urine (UA) Negative (Negative); Ketones,Urine Negative (Negative); Leukocyte Esterase,Urine 1+ (Negative); Nitrate,Urine Negative (Negative); PH,Urine 5.5 (5.0-8.5); Protein,Urine 1+ (Negative); Specific Gravity, Urine 1.025 (1.005-1.030); Urobilinogen,Urine 0.2 EU/dl (0.2)
[2021-09-28 21:55] LABS: Alanine Aminotransferase 17 U/L (12-78); Albumin Level 3.6 g/dl (3.5-5.0); Albumin/Globulin Ratio 1.3 (1.1-1.8); Alkaline Phosphatase 78 U/L (38-126); Anion Gap 8.5 mEq/L (5-15); Aspartate Amino Transferase 34 U/L (14-36); Bilirubin,Total 0.4 mg/dl (0.2-1.3); Blood Urea Nitrogen 32 mg/dl (7-17); Calcium 8.2 mg/dl (8.4-10.2); Carbon Dioxide 32 mmol/L (22.0-30.0); Chloride 93 mmol/L (98-107); Creatinine Clearance Estimated 47 mL/min (50-200); Estimated Glomerular Filt Rate 60 ml/min (>60); GFR (African American) 72 ML/MIN (>60); Globulin 2.8 g/dL (1.3-3.2); Glucose 156 mg/dl (74-100); Magnesium 1.1 mg/dl (1.6-2.3); Potassium 3.5 mmoL/L (3.5-5.1); Sodium 130 mmol/L (136-145); Total Protein,Serum 6.4 g/dl (6.3-8.2)
[2021-09-28 21:56] LABS: Lactic Acid 0.7 mmol/L (0.7-2.1)
[2021-09-28 22:00] LABS: C-Reactive Protein 121.9 mg/L (0-4)
[2021-09-28 22:00] LABS: WBC,Urine 20-50 #/hpf (0-3)
[2021-09-28 22:07] LABS: NT Pro Brain Natriuretic Pep. 1160 pg/mL (0-450)
[2021-09-28 22:10] LABS: Troponin I 0.02 ng/ml (0.00-0.034)
[2021-09-28 22:11] LABS: Erythrocyte Sedimentation Rate 36 mm/hr (0-30)
[2021-09-28 22:15] LABS: Procalcitonin 0.671 ng/mL (0.0-2.0); T4 (Thyroxine) 7.9 ug/dl (5.53-11.0)
[2021-09-28 22:22] VITALS: BP 149/65; PULSE 117; RESP 33; O2SAT 92
[2021-09-28 22:28] LABS: Thyroid Stimulating Hormone 0.91 uIU/mL (0.465-4.68)
[2021-09-28 22:31] VITALS: BP 138/69; PULSE 108; O2SAT 87
--- NOTE | 2021-09-28 22:54 | PC.NURSE ---
paged Dr. Prado (production machine tender for Dr. Garcia)
--- NOTE | 2021-09-28 22:56 | PC.NURSE ---
Dr. Ram s/w Dr. Prado
--- NOTE | 2021-09-28 23:02 | CT_ITS ---
PROCEDURE INFORMATION: Exam: CTA Chest With Contrast Exam date and time: 09/28/2021 11:02 PM Age: 81 years old Clinical indication: Injury or trauma; Blunt trauma (contusions or hematomas); Injury date: 09/28/2021; Injury details: Fall tonight now SOB tachypnea low 02; Additional info: Tachypnea, low o2, post fall TECHNIQUE: Imaging protocol: Computed tomographic angiography of the chest with contrast. 3D rendering (Not supervised by radiologist): MIP and/or 3D reconstructed images were created by the technologist. Radiation optimization: All CT scans at this facility use at least one of these dose optimization techniques: automated exposure control; mA and/or kV adjustment per patient size (includes targeted exams where dose is matched to clinical indication); or iterative reconstruction. Contrast material: ISOVUE 370; Contrast volume: 70 ml; Contrast route: INTRAVENOUS (IV); COMPARISON: CR XR CHEST AP 09/28/2021 9:54 PM FINDINGS: Pulmonary arteries: Normal. No pulmonary emboli. Aorta: Unremarkable. No aortic aneurysm. No aortic dissection. Lungs: There is scarring in the lung apices. Emphysema. Scattered atelectasis bilaterally. No pneumonia. Pleural spaces: Unremarkable. No pneumothorax. No pleural effusion. Heart: Unremarkable. No cardiomegaly. No pericardial effusion. Lymph nodes: Unremarkable. No enlarged lymph nodes. Diaphragm: Large hiatal hernia. Intraperitoneal space: Upper abdomen reveals partially imaged stranding around the left kidney. Bones/joints: Superior endplate fracture of T5. No acute fracture. Soft tissues: Unremarkable. IMPRESSION: 1. No pulmonary embolism. No acute cardiopulmonary process. 2. Upper abdomen reveals partially imaged stranding around the left kidney. Recommend abdomen and pelvis CT to further evaluate.
[2021-09-28 23:09] LABS: Coronavirus 19, PCR Not Detected (NotDetected); Influenza A, PCR Not Detected (NotDetected); Influenza B, PCR Not Detected (NotDetected)
--- NOTE | 2021-09-29 00:12 | PC.NURSE ---
Patient assigned to 215 with dx. UTI and SIRS
[2021-09-29 01:08] LABS: Troponin I 0.02 ng/ml (0.00-0.034)
--- NOTE | 2021-09-29 01:09 | PC.NURSE ---
Pt's son set up password as Moreno
[2021-09-29 01:11] VITALS: BP 124/75; PULSE 81; RESP 25; TEMP 37.2; O2SAT 96
[2021-09-29 01:15] VITALS: BP 113/57; PULSE 82; RESP 20; TEMP 36.4; O2SAT 96; BMI 26.6
--- NOTE | 2021-09-29 01:15 | PC.NURSE ---
patient up to floor via wheelchair.
[2021-09-29 04:00] VITALS: BP 104/58; PULSE 72; RESP 18; TEMP 36.4; O2SAT 94
[2021-09-29 04:06] LABS: Anion Gap 9.2 mEq/L (5-15); Basophils % 0.3 % (0.1-2.0); Blood Urea Nitrogen 33 mg/dl (7-17); Calcium 7.6 mg/dl (8.4-10.2); Carbon Dioxide 30 mmol/L (22.0-30.0); Chloride 95 mmol/L (98-107); Creatinine Clearance Estimated 48 mL/min (50-200); Eosinophils % 0.3 % (0.1-12.0); Estimated Glomerular Filt Rate 60 ml/min (>60); GFR (African American) 72 ML/MIN (>60); Lymphocytes # 1.2 K/mm3 (0.7-4.5); Lymphocytes % 17.1 % (10-50); Magnesium 1.1 mg/dl (1.6-2.3); Mean Corpuscular HGB Conc 31.8 g/dL (31.8-35.4); Mean Corpuscular Hemoglobin 29.2 pg (27.0-31.2); Mean Corpuscular Volume 91.7 fl (81-99); Mean Platelet Volume 8.5 fl (7.4-10.4); Monocytes # 0.6 K/mm3 (0.1-1.0); Monocytes % 8.4 % (1.7-9.3); Neutrophils # 5.1 K/mm3 (1.8-7.8); Neutrophils % 73.9 % (37.0-80.0); Platelet Count 266 K/mm3 (142-424); Potassium 3.2 mmoL/L (3.5-5.1); Red Blood Count 3.81 M/mm3 (4.20-5.40); Red Cell Distribution Width 12.6 % (11.5-17.5); Sodium 131 mmol/L (136-145); White Blood Count 6.9 K/mm3 (4.8-10.8)
[2021-09-29 04:12] LABS: Hemoglobin 11.1 g/dL (12.2-16.2)
[2021-09-29 04:13] LABS: Glucose 118 mg/dl (74-100)
[2021-09-29 04:18] LABS: Troponin I 0.02 ng/ml (0.00-0.034)
[2021-09-29 05:19] VITALS: BMI 26.6
--- NOTE | 2021-09-29 07:10 | CA_ITS ---
APPROVED REPORT EXAM: Comprehensive 2D, Doppler, and color-flow Echocardiogram Moth Exterminator: Latrice Alonso, RCS, RVS Ht: 5 ft 4 in Wt: 156lbs BSA: 1.76 BP: 104/58 mmHg Indications: Ex-smoker, HTN, HLD, Hypoxemia, ROCHA, Murmur 2D Dimensions IVSd 0.91 cm LVEF (Visual) 51.60 % PWd 0.88 cm LA Volume 48.00 mL LVDd 4.66 cm LA Volume Index 27.364113 mL/m2 (M/F) 16-34 LVDs 3.43 cm Aortic Root 2.86 cm Left Atrium 3.08 cm LVOT 1.82 cm (M/F) 1.5-2.5 M-Mode Dimensions RVDd 1.39 cm (0.9-2.6) LA Diam 3.57 cm (1.9-4.0) LVDd 4.60 cm (3.5-5.7) Ao Diam 3.21 cm (2.0-3.7) LVDs 3.00 cm (3.5-5.7) IVSd 0.89 cm (0.6-1.1) PWd 0.82 cm (0.6-1.1) EF (Teich) 64.00% EPSs 0.75 cm FS 34.80% EDV (Teich) 97.30 mL TAPSE 1.75 (<1.7) ESV (Teich) 35.00 mL LV Diastology E Decel Time 223.00 (160-240 msec) E/A Ratio 0.79 MED E' 7.20 (< 7 cm/sec) MED A' 10.90 cm/s E'/MED E' Ratio 12.76 (>14) LAT E' 6.80 (<10 cm/sec) LAT A' 13.90 cm/s E/LAT E' Ratio 13.51 (>14) Aortic Valve LVOT Max 101.00 (70-110 cm/s) LVOT VTI 26.03 cm AoV Peak Holger. 147.00 (50-130 cm/s) AI PHT 383.00 ms AO Peak GR. 8.60 mmHg AO Mean GR. 4.30 (<5 mmHg) AO VTI 33.69 (18-25 cm) ELANA (VTI) 2.01 (2.5-4.5 cm2) Mitral Valve MV A Velocity 116.00 (40-130 cm/s) E/A Ratio 0.79 MV Decel. Time 223.00 (160-240 ms) Tricuspid Valve TR P. Velocity 298.00 cm/s RAP Estimate 10.00 mmHg RVSP 45.50 mmHg Left Ventricle Left atrium is mildly enlarged, left ventricle is normal size, mild concentric left ventricular hypertrophy, visually estimated ejection fraction 55% with no regional wall motion abnormality, grade 1 diastolic dysfunction seen with tissue Doppler evidence of raise left atrial pressure. Right Ventricle Right atrium and right ventricle mildly enlarged with normal contractility. Aortic Valve Aortic valve is thickened and calcified without Doppler evidence of aortic stenosis, there is mild aortic insufficiency. Mitral Valve Mitral valve leaflets are minimally thickened, there is mild mitral regurgitation. Tricuspid Valve Tricuspid grossly normal, there is mild tricuspid regurgitation, tricuspid regurgitation jet velocity is inadequate for calculation of the right ventricular systolic pressure. Pulmonic Valve Pulmonic valve is poorly visualized. Great Vessels Aortic root is normal size. Inferior vena cava is normal size with normal inspiratory collapse. Pericardium No significant pericardial effusion noted. Conclusion 1. Mild biatrial enlargement, normal left ventricular size, mild concentric left ventricular hypertrophy, visually estimated ejection fraction 55% with no regional wall motion abnormality, grade 1 diastolic dysfunction seen with tissue Doppler evidence of raise left atrial pressure. 2. Mildly dilated ventricle with normal contractility. 3. Mild mitral aortic and tricuspid regurgitation. 4. No significant pericardial effusion noted. 5. Inferior vena cava is normal size with normal inspiratory collapse. Electronically signed by : Alon Shrestha MD 09/29/2021 19:41:35
--- NOTE | 2021-09-29 07:11 | HMH.HP ---
*Admission Date: 09/29/21 *Chief complaint: Multiple falls at home *History of present illness: 81-year-old female presented to the emergency department after multiple falls at home. Patient describes her falls as getting dizzy upon standing and then becoming weak and falling. Apparently this happened 4 times at home and finally family decided to bring her to the emergency department. Patient had just completed a rehabilitation stay at [facility] and had returned home. Upon arrival to the emergency department patient had an ER fever of 103.1. Further work-up was suggestive of urinary tract infection. Patient was also noted to be tachypneic and ultimately required application of supplemental oxygen via nasal cannula overnight due to hypoxia with O2 sat of 87%. Patient was admitted for IV antibiotics, oxygen support and observation. Patient denies chest pain, cough, shortness of breath at home, fevers, chills, dysuria, hematuria, urinary urgency, urinary frequency [facility] History I have reviewed the patient's past medical history: Yes Medical History: Reports:: Hyperlipidemia, Hypertension Denies:: Diabetes Mellitus Type 2 *Have you ever received a pneumonia vaccine?: Yes *Have you received a flu vaccine this season?: Yes Other Medical History: Reports: Hypothyroidism Laterality Cases: Bilateral: Tonsillectomy Other Surgeries: Yes: Hysterectomy-Total, Other (Tonsilectomy) Amputation: No Fractures: No - *Social History Smoking Status: Former smoker Tobacco Type: cigarettes # Packs/Day (cigarettes): 1 Alcohol Intake: never *Occupational Status:: disabled Housing: house Household Members: family, children *Travel in the last 8 weeks: None Family Hx:: Cancer Review of Systems - Constitutional Denies anorexia, Denies body ache(s), Denies chills, Denies lack of energy - Eyes Denies blurry vision - ENT Reports abnormal hearing - *Cardiovascular Denies chest pain, Denies chest pain at rest, Denies chest pain with activity, Denies shortness of breath with activity, Denies generalized swelling, Denies irregular heart rhythm - *Respiratory Denies change in phlegm color, Denies chest congestion, Denies cough - *Gastrointestinal Denies abdominal pain, Denies belching, Denies loose stools - *Genitourinary Denies urinary urgency - *Musculoskeletal Reports joint pain, Denies abnormal walking - Integumentary/Breasts Denies hair loss - *Neurologic Reports dizziness, Reports weakness, Denies confusion, Denies localized weakness, Denies headache(s), Denies seizure-like activity - Psychiatric Denies abnormal sleep pattern - Endocrine Denies cold intolerance, Denies excessive sweating Meds Home Medications Medication Instructions Recorded Confirmed Type Aspirin [Aspirin 81mg chewable 81 mg PO DAILY 04/06/20 09/29/21 History tab] Benazepril/Hydrochlorothiazide 1 tab PO DAILY 04/06/20 09/29/21 History [Benazepril-Hctz 20-25 mg Tab] Cetirizine HCl [Zyrtec] 10 mg PO DAILY 04/06/20 09/29/21 History Levothyroxine Sodium 75 mcg PO DAILY 04/06/20 09/29/21 History [Levothyroxine 75mcg (0.075mg) Tab] Omeprazole [Omeprazole 40mg 40 mg PO DAILY 04/06/20 09/29/21 History Capsule] Pravastatin Sodium [Pravachol 40mg 40 mg PO HS 04/06/20 09/29/21 History Tablet] allopurinoL [Allopurinol 100mg 100 mg PO DAILY 04/06/20 09/29/21 History tablet] Quetiapine Fumarate [Seroquel 25mg 25 mg PO HS 08/25/21 09/29/21 History tablet] Diclofenac Sodium [Diclofenac Sod 1 applicatio TP QIDP PRN 08/26/21 09/29/21 History 100gm Topical Gel] LORazepam [Lorazepam 0.5mg Tablet] 0.5 mg PO BIDP PRN #60 tab 08/28/21 09/29/21 Rx Tramadol HCl [Tramadol 50mg 50 mg PO DAILYP PRN #30 tab 08/28/21 09/29/21 Rx Tab] Allergies Allergy/AdvReac Type Severity Reaction Status Date / Time No Known Allergies Allergy Unverified 10/05/17 14:25 Exam Vital signs and Labs for Last 24 Ho
--- NOTE | 2021-09-29 07:22 | XR_ITS ---
PROCEDURE: XR CHEST PORTABLE CLINICAL HISTORY: hypoxia COMPARISON: CR CXR CHEST(2 VIEWS-NOT PORTABLE) from 04/04/2016 CR XR CHEST AP from 09/28/[address] ANGIO CHEST PE PROTOCOL from 09/28/[address] ABDOMEN PELVIS W CON from 09/28/2021 FINDINGS: The cardiomediastinal silhouette and pulmonary vascularity are within normal limits. No lobar consolidation or collapse. Minimal atelectatic change left lower lobe. Chronic coarsening of the bronchovascular markings consistent with COPD. No acute bony abnormalities. IMPRESSION: No acute findings. Dictated by: Carson Chowdhury MD 09/29/2021 09:16 Carson Chowdhury MD in [place] 09/29/2021 09:16
--- NOTE | 2021-09-29 07:27 | P.CONPHA_ITS ---
[facility] Pharmacy VTE Monitoring - Patient Demographics Admission date: 09/28/21 Report Date: 09/29/21 Time: 07:27 Allergies/Adverse Reactions: Patient Allergies No Known Allergies Allergy (Unverified 10/05/17 14:25) Height: 1.63 m Weight: 70.806 kg Patient Problems: Current Active Problems Essential hypertension (Acute) UTI (urinary tract infection) (Acute) SIRS (systemic inflammatory response syndrome) (Acute) Dyspnea (Acute) Hypoxia (Acute) - VTE Risk Labs: VTE Related Lab Results Hgb 11.1 g/dL (12.2-16.2) L D 09/29/21 03:50 Hct 35.0 % (37.0-47.0) L 09/29/21 03:50 Plt Count 266 K/mm3 (142-424) 09/29/21 03:50 BUN 33 mg/dl (7-17) H 09/29/21 03:50 Creatinine 0.90 mg/dl (0.52-1.04) 09/29/21 03:50 Estimated Creat Clear 48 mL/min (50-200) 09/29/21 03:50 - Prophylaxis VTE Prophylaxis Ordered?: Yes Types of VTE Prophylaxis: TEDS Knee High Location of Applied Device: Bilateral Lower Extremeties
[2021-09-29 08:00] VITALS: BP 140/65; PULSE 83; RESP 19; TEMP 36.6; O2SAT 100
--- NOTE | 2021-09-29 11:03 | SW/DCPLANNER ---
Addendum entered by Daniella Parnell 10/01/21 07:21: PATIENT DISCHARGED TO [facility], [facility] YESTERDAY AND WENT TO THE PERSONAL CARE SECTION.. DAUGHTER STATED SHE FEELS BETTER KNOWING SHE IS THERE VERSES BEING AT HOME... THEY ARE GOING TO EVAL HER THERE AND USE THEIR THERAPY DEPT TO SEE HER DURING HER SHORT TERM STAY THERE, PER FAMILY REQUEST.. Original Note: DR DUNCAN SPOKE WITH ME THIS MORNING REGARDING THIS PATIENT THAT JUST GOT OUT OF [facility], [facility] AND WENT HOME AND HAS HAD SEVERAL FALLS.. I MADE CONTACT WITH [facility], [facility] AND [facility] CALLED THE SON WHOM SHE LIVES WITH AND HE SAID IF PHYSICAL THERAPY SAYS SHE NEEDS TO COME BACK HE CAN AFFORD FOR HER TO GO SHORT TERM.. WAITING ON HER PT EVAL TO BE DONE AND I WILL SEND IT TO [facility], [facility] AND LET DR DUNCAN KNOW IF THEY WILL TAKE HER BACK...
--- NOTE | 2021-09-29 11:13 | HMH.PHAINT ---
Home medications verified with [facility] pharmacy and Dr. Garcia's office.
--- NOTE | 2021-09-29 11:33 | HMH.PTEV ---
Physical Therapy Evaluation Rehab PT IP Evaluation Start: 09/29/21 07:22 Freq: ONCE Status: Active Protocol: Document 09/29/21 11:27 PHORSUNNI (Rec: 09/29/21 11:32 PHORNE [id number]) Subjective/History History History 81 yowf adm to [facility] with UTI, She reports she lives with grandson with no steps to enter the home and has walker for ambulation. Subjective Subjective Pt states, I hurt from my neck down to my feet. I can't take this catheter home with me. Rehab PT IP Eval Objective Appearance Patient Behavior Appropriate,Confused Patient Orientation Person,Place,Month Difficulty following instructions none Speech Pattern Clear Ambulation Patient Able to Ambulate No Balance Ability to Arise Able, uses arms to help Sitting Balance Steady, safe Standing Balance Steady, wide stance Dynamic Sitting Balance Ability Good Dynamic Standing Balance Ability Fair Transfers Bed Transfer Ability Minimal x 1 (25% assist) Chair Transfer Ability Minimal x 1 (25% assist) Sit to Stand Bed Transfer Ability Minimal x 1 (25% assist) Sit to Stand Chair Transfer Ability Minimal x 1 (25% assist) Rehab PT IP prob,goals,plan Problems Date of Evaluation: 09/29/21 PT IP Problems Bed Mobility,Transfers,Gait Rehab Potential Rehab Potential Good Plan PT Intervention Plan Bed Mobility,Transfers,Gait, Self care,Therapeutic Exercise PT Plan Frequency BID Duration LOS Discharge Goals Bed Transfer Ability Supervision/Stand by Sit to Stand Chair Transfer Ability Contact Guard/Hand Hold Ambulation Assistive Device Rolling Walker Ambulation Distance (feet) 15 Discharge Plan PT Discharge Plan Pt is most appropriate for rehab placement at this time, but could improve with mobility enough to return home once medically stable. G -code Required No Eval Complexity Eval Charge Codes 51244 - Moderate Complexity PHYSICIAN CERTIFICATION: I certify the specified therapy services for Lis Castillo are required, authorized, and reviewed every 30 days.
[2021-09-29 16:00] VITALS: BP 137/69; PULSE 102; RESP 18; TEMP 36.8; O2SAT 98
[2021-09-29 20:00] VITALS: BP 130/79; PULSE 88; RESP 17; TEMP 36.8; O2SAT 98
[2021-09-30 04:00] VITALS: BP 128/74; PULSE 80; RESP 18; TEMP 36.6; O2SAT 96
--- NOTE | 2021-09-30 05:02 | PC.NURSE ---
pt has rested intermittently this shift, to remains in place, pt has requested several times to have it taken out, 500 mL out so far this shift, is A&Ox4 but does have intermittent confusion, has not complained of pain this shift or SOA, remains on 2L NC with O2 sats 96-98%
[2021-09-30 05:15] VITALS: BMI 26.9
[2021-09-30 06:51] LABS: Chloride 97 mmol/L (98-107); Potassium 3.8 mmoL/L (3.5-5.1); Sodium 134 mmol/L (136-145)
[2021-09-30 06:54] LABS: Anion Gap 11.8 mEq/L (5-15); Blood Urea Nitrogen 20 mg/dl (7-17); Calcium 7.8 mg/dl (8.4-10.2); Carbon Dioxide 29 mmol/L (22.0-30.0); Creatinine Clearance Estimated 48 mL/min (50-200); Estimated Glomerular Filt Rate 95 ml/min (>60); GFR (African American) 116 ML/MIN (>60); Glucose 98 mg/dl (74-100)
--- NOTE | 2021-09-30 07:32 | HMH.DCSUM ---
General - General Admission date:: 09/29/21 Discharge date: 09/30/21 HPI HPI: 81-year-old female presented to the emergency department after multiple falls at home. Patient describes her falls as getting dizzy upon standing and then becoming weak and falling. Apparently this happened 4 times at home and finally family decided to bring her to the emergency department. Patient had just completed a rehabilitation stay at [facility] and had returned home. Upon arrival to the emergency department patient had an ER fever of 103.1. Further work-up was suggestive of urinary tract infection. Patient was also noted to be tachypneic and ultimately required application of supplemental oxygen via nasal cannula overnight due to hypoxia with O2 sat of 87%. Patient was admitted for IV antibiotics, oxygen support and observation. Patient denies chest pain, cough, shortness of breath at home, fevers, chills, dysuria, hematuria, urinary urgency, urinary frequency Hospital Course Hospital Course: Patient was admitted with suspected UTI. Placed on Rocephin intravenously. Patient did not have another fever other than a temperature of 103.1 and in the emergency department. White count remained normal. On the patient was evaluated by physical therapy due to her falls at home. She had significant weakness and short-term rehab was recommended. Patient was accepted back to [facility]. After remaining afebrile and staying at her baseline mental status patient was discharged to [facility] on September 30. Patient was discharged to facility on oral antibiotics while awaiting urine culture. Patient had mild dyspnea, tachypnea, and oxygen requirement on admission to the hospital. Serial chest x-rays were negative. Echocardiogram revealed grade 1 diastolic dysfunction. Patient responded well to diuresis with Lasix. Patient will be started on low-dose of spironolactone at discharge. Patient will have a repeat BMP in 3 days through the facility. Due to falls patient's lorazepam is going to be discontinued. Patient needs a BMP on 10/02/2021 Objective Vital signs: Temp Pulse Resp BP Pulse Ox 98 F 80 18 128/74 96 09/30/21 04:00 09/30/21 04:00 09/30/21 04:00 09/30/21 04:00 09/30/21 04:00 no acute distress - *Routine Respiratory Exam Present: CTA bilaterally - *Routine Cardiovascular Exam Present: RRR - *Routine Abdominal Exam Present: soft, normoactive bowel sounds. Absent: tenderness Results Labs on day of discharge: Labs from last 24 hours 09/30/21 05:23 Sodium 134 L Potassium 3.8 Chloride 97 L Carbon Dioxide 29 Anion Gap 11.8 BUN 20 H D Creatinine 0.60 D Estimated Creat Clear 48 Estimated GFR 95 Est GFR ( Amer) 116 D Glucose 98 Calcium 7.8 L Preliminary micro results at discharge 09/28/21 21:36 Urine Culture - Preliminary Urine,Catheterized DS: Diagnosis - Discharge Diagnosis (1) Hypoxia Status: Acute (2) UTI (urinary tract infection) Status: Acute (3) Essential hypertension Status: Acute (4) SIRS (systemic inflammatory response syndrome) Status: Acute (5) Diastolic CHF, acute Status: Acute (6) Fall at home Status: Acute Discharge Plan - Patient Discharge Instructions ACTIVITY: Continue current activity DIET: continue same diet Patient Instructions: DI for Urinary Tract Infection (UTI) - Follow up Plan Disposition: [facility] Condition at discharge:: Improved Home Medications: Home Medications Medication Instructions Recorded Confirmed Type Aspirin [Aspirin 81mg chewable 81 mg PO DAILY 04/06/20 09/29/21 History tab] Benazepril/Hydrochlorothiazide 1 tab PO DAILY 04/06/20 09/29/21 History [Benazepril-Hctz 20-25 mg Tab] Cetirizine HCl [Zyrtec] 10 mg PO DAILY 04/06/20 09/29/21 History Levothyroxine Sodium 75 mcg PO DAILY 04/06/20 09/29/21 History [Levothyroxine 75mcg (0
[2021-09-30 08:00] VITALS: O2SAT 95
[2021-09-30 08:10] LABS: Coronavirus 19, PCR Not Detected (NotDetected); Influenza A, PCR Not Detected (NotDetected); Influenza B, PCR Not Detected (NotDetected)
== END 2021-09-30 12:28 | disposition home or self-care (01) ==
LOC: ER 09-29 00:10 → 2ND 09-29 00:14
PROVIDERS: Admitting Provider Internal Medicine Adolescent Medicine; Emergency Provider Emergency Medicine; PCP Family Medicine; Visit Provider Family Medicine
DX: N39.0 Urinary tract infection, site not specified (principal); R29.6 Repeated falls; Z20.822 Contact with and (suspected) exposure to COVID-19; I11.0 Hypertensive heart disease with heart failure; Z79.899 Other long term (current) drug therapy; E03.9 Hypothyroidism, unspecified; I50.31 Acute diastolic (congestive) heart failure
CPT/HCPCS: G0378; 36415; 71045; 71275; 73521; 74177; 80048; 80053; 81001; 83605; 83735; 83880; 84145; 84436; 84443; 84484; 85025; 85651; 86140; 87040; 87086; 87088; 87186; 93005; 93306; 96365; 96367; 96375; 97110; 97162; 97530; 99285; C9803; Q9967; U0003; U0005

== ENCOUNTER 2021-11-15 04:40 | Emergency (ER) | payer MEDICARE, BC, SELFPAY ==
[2021-11-15 04:29] VITALS: BMI 26.6
--- NOTE | 2021-11-15 05:13 | HMH.EDCPR ---
ED Disposition Clinical Impression: Cardiopulmonary arrest Disposition: Condition on Discharge: Referrals: Provider,Referral, [Primary Care Provider] - - Critical Care Critical Care Time: No Attestation: On 11/15/21, the high probability of a clinically significant, sudden or life threatening deterioration of the following system(s) required my full and direct attention, intervention and personal management. The time I documented below is in addition to time spent performing reported procedures but includes the following listed in this critical care notation. [facility] Code Documentation - Arrest Information Outside of Hospital The Code Document Section documentation for [id number] Lis Castillo was populated with data that defaulted in from the pharmacy clinical coordinator in the Code Assessment on f_Reg Service Date] to provide within this report, the status and treatment of the patient in the ED during a Code. This documentation will be supplemented with my direct findings within the body of the report. Date Treatment Initiated: 11/15/21 Time Treatment Initiated: 03:15 Treatment Initiated By: Bystander Location of Arrest: home Arrest Witnessed: Yes Estimated Down Time: 45 - ALS Code Inititation ALS Initiated By: EMS ALS Type: ACLS - Patient Condition At Code Start Condition of Patient at Start of Code: Pulseless Monitoring Devices: ECG Monitor - Circulation Initial Cardiac Rhythm: Asystole - Labs Fingerstick Blood Glucose: 337 - Code End Time Code Ended: 04:15 Patient Successfully Resuscitated: No Reason Code Ended: - Efforts Terminated Family Members Present During Code: No Names of All Individuals Present at Code: Malina torres RN. carmen wray RN. Ilda Thompson RN. Martin Wu Rn. Adore Corey Rt - Patient Expiration Date: 11/15/21 Expiration Time: 04:15 Pronounced by: malcolm Time Pronounced: 04:15 Post Mortem Care Provided: Yes Organ Donor: No Kannan Notified: Yes Name of Kannan Station Usher: Yoana cazares Him Manager Case: No Him Manager Notified: Yes (Vincent Hinojosa) Him Manager Notification Date: 11/15/21 Him Manager Notification Time: 04:20 Body Released To: berto Medical Decision Making - Medical Records Medical records reviewed: Yes: I reviewed the patient's medical records. - Adam Inquiry Pt receiving controlled substance: No Orders (Tests/Meds): ED MEDICATIONS Generic Name Dose Route Start Last Admin Trade Name Kathrine PRN Reason Stop Dose Admin Epinephrine HCl 1 mg 11/15/21 04:42 11/15/21 04:46 Epinephrine 0.1 Mg/Ml 10ml Syringe (Crash Cart) IV 12/15/21 04:01 1 mg NEEDED PRN Administration Code Blue Med Administration Discontinued Medications Generic Name Dose Route Start Last Admin Trade Name Americoq PRN Reason Stop Dose Admin Sodium Bicarbonate 50 meq 11/15/21 04:06 11/15/21 04:45 Sodium Bicarb 8.4% 50ml Syringe (Crash Cart) IV 11/15/21 04:07 50 meq ONCE ONE Administration Medical Decision Narrative: pt with sob which progressed to syncope with cardiac arrest and ems with asystolic and cpr but failed to resp to acls protocol and pronounced at 0415 CPR HPI - General Stated Complaint: code blue Time Seen by Provider: 11/15/21 04:41 - Related Data Home Medications Medication Instructions Recorded Confirmed Aspirin [Aspirin 81mg chewable 81 mg PO DAILY 04/06/20 09/29/21 tab] Benazepril/Hydrochlorothiazide 1 tab PO DAILY 04/06/20 09/29/21 [Benazepril-Hctz 20-25 mg Tab] Cetirizine HCl [Zyrtec] 10 mg PO DAILY 04/06/20 09/29/21 Levothyroxine Sodium 75 mcg PO DAILY 04/06/20 09/29/21 [Levothyroxine 75mcg (0.075mg) Tab] Omeprazole [Omeprazole 40mg 40 mg PO DAILY 04/06/20 09/29/21 Capsule] Pravastatin Sodium [Pravachol 40mg 40 mg PO HS 04/06/20 09/29/21 Tablet] allopurinoL [Allopurinol 100mg 100 mg PO DAILY 04/06/20 09/29/21 tablet] Quetiapine Fu
--- NOTE | 2021-11-15 05:28 | PC.NURSE ---
0400 pt arrived via EMS. EMS reported called out for a pt with SOA. pt stopped breathing, family member began CPR. EMS took over CPR. Pt intubated with 6.5 ET tube. Pt transfer to stretcher and pads applied. Asystole on monitor 0401 FSBS obtained 337, Epi given 0402 rhythm check asystole on monitor 0404 Epi given 0405 rhythm check asystole on monitor 0406 Bicarb given 0407 rhythm check asystole on monitor, epi given 0408 rhythm check asystole on monitor, no pulse detected via Doppler 0409 to cath placed 0410 rhythm check weak pulse detected via doppler, epi given 0412 rhythm check asystole on monitor 0415 TOD called 0420 Yo speaking with family members 0423 Vincent James notified of . pt released from [facility]. 0439 MALIK called and pt was ruled out due to age. spoke to Yoana Adam [id number] Vincent Hinojosa arrived and speaking with family 0548 body released to [place] [facility] @ this time
[2021-11-15 05:49] VITALS: BP 0/0; PULSE 0; RESP 0; TEMP -17.7; TEMP 0
== END 2021-11-15 06:24 | disposition expired ==
PROVIDERS: Emergency Provider Emergency Medicine
DX: I46.9 Cardiac arrest, cause unspecified (principal); E10.9 Type 1 diabetes mellitus without complications; E78.5 Hyperlipidemia, unspecified; I10 Essential (primary) hypertension; E03.9 Hypothyroidism, unspecified
CPT/HCPCS: 51702; 92950; 96374; 96375; 99282